=== PATIENT | female | born 1950 | race Caucasian/White ===

== ENCOUNTER 2023-10-07 14:38 | Inpatient (IN) ==
[2023-10-07 16:26] LABS: ABS Lymphocytes 1.5 10^3/uL (1.0-4.8); ABS Monocytes 0.7 10^3/uL (0.0-0.9); ABS Neutrophils 6.4 10^3/uL (1.5-7.6); Eosinophil % 0.2 %; Hematocrit 36.8 % (35-45); Hemoglobin 12.3 g/dL (11.5-14.3); Lymphocyte % 16.9 %; Mean Corpuscular Hemoglobin 28.2 pg (27-33); Mean Corpuscular Hgb Conc 33.5 g/dL (31-36); Mean Corpuscular Volume 84.2 fL (80-97); Mean Platelet Volume 8.4 fL (7.5-11.2); Platelet Count 248 10^3/uL (150-450); Red Blood Count 4.37 10^6/uL (3.63-4.92); Red Cell Distribution Width 15.1 % (12-17); White Blood Count 8.6 10^3/uL (3.8-11.8)
[2023-10-07] MEDS: Lactated Ringers SEPSIS* BAG 1,560 ML IV ONE (16:39)
[2023-10-07 16:53] LABS: Albumin 3.3 g/dL (3.2-5.2); Albumin/Globulin Ratio 1.4 (1-3); C Reactive Protein 27.4 mg/L (<8.01); Calcium 8.4 mg/dL (8.6-10.3); Creatinine, Serum 0.62 mg/dL (0.51-0.95); Globulin 2.3 g/dL (2-4); Potassium 3.5 mmol/L (3.5-5.0); Total Bilirubin 0.4 mg/dL (0.2-1.0); Total Protein 5.6 g/dL (6.4-8.9); eGFR CKD-EPI 92.8 (>60)
[2023-10-07 16:54] LABS: Activated Partial Thrombo Time 33.7 seconds (26.0-38.0); INR 1.48 (0.83-1.13)
[2023-10-07 17:58] LABS: High Sensitivity Troponin 1 Hr 22 pg/mL (<15)
[2023-10-07] MEDS: Metoprolol Tartrate 5 mg VIAL 5 ml VIAL (1 mg/ml) IV ONE (18:14)
[2023-10-07] MEDS: Acetaminophen IV 1 GM/100ML 1,000 MG/100 ML BAG IV SCH (20:11)
[2023-10-07] MEDS: Potassium Chlor 20 meq TAB.ER PO ONE (20:11)
[2023-10-07] MEDS: Nystatin SUSPENSION 100,000 UNITS/ML UDC PO SCH (20:11)
[2023-10-07 21:04] LABS: TSH Ultra Thyroid Stim Horm 0.56 mcIU/mL (0.34-5.60)
[2023-10-07] MEDS: Morphine 2 MG/ML SYRINGE IV PRN (22:22)
[2023-10-08] MEDS: Lactated Ringers 1000 ml BAG 1,000 ML IV SCH (00:07)
[2023-10-08 05:25] LABS: Urine Appearance Clear; Urine Bilirubin Negative (Negative); Urine Blood Negative (Negative); Urine Color Light-Yellow; Urine Glucose Negative (Negative); Urine Ketones 3+ (Negative); Urine Nitrite Negative (Negative); Urine Protein Trace (Negative); Urine Specific Gravity 1.025 (1.002-1.030); Urine Urobilinogen Negative (Negative)
[2023-10-08 05:29] LABS: Urine Bacteria Absent /HPF (Absent); Urine Red Blood Cell Trace(0-2/hpf) /HPF (0-Trace); Urine Squamous Epithelial Cell Present /HPF (Absent); Urine White Blood Cell 3+(>20/hpf) /HPF (0-Trace)
[2023-10-08 05:51] LABS: ABS Eosinophils 0.1 10^3/uL (0.0-0.5); ABS Lymphocytes 2.6 10^3/uL (1.0-4.8); ABS Monocytes 0.7 10^3/uL (0.0-0.9); ABS Neutrophils 3.1 10^3/uL (1.5-7.6); Eosinophil % 1.1 %; Hematocrit 32.2 % (35-45); Hemoglobin 10.8 g/dL (11.5-14.3); Lymphocyte % 40.7 %; Mean Corpuscular Hemoglobin 28.2 pg (27-33); Mean Corpuscular Hgb Conc 33.7 g/dL (31-36); Mean Corpuscular Volume 83.7 fL (80-97); Mean Platelet Volume 8.3 fL (7.5-11.2); Nucleated Red Blood Cells % 0.1 %/100WBC (0.0-0.8); Platelet Count 233 10^3/uL (150-450); Red Blood Count 3.85 10^6/uL (3.63-4.92); Red Cell Distribution Width 15.4 % (12-17); White Blood Count 6.5 10^3/uL (3.8-11.8)
[2023-10-08 07:02] LABS: Albumin 2.9 g/dL (3.2-5.2); Albumin/Globulin Ratio 1.5 (1-3); Calcium 7.9 mg/dL (8.6-10.3); Creatinine, Serum 0.59 mg/dL (0.51-0.95); Magnesium 1.3 mg/dL (1.9-2.7); Potassium 3.2 mmol/L (3.5-5.0); Total Bilirubin 0.4 mg/dL (0.2-1.0); Total Protein 4.9 g/dL (6.4-8.9); eGFR CKD-EPI 93.9 (>60)
[2023-10-08] MEDS: Ondansetron 4 mg VIAL 2 MG/ML 2 ml VIAL IV PRN (08:35)
[2023-10-08] MEDS: Aspirin EC 81 mg TAB.EC (enteric coated) PO SCH (08:37)
[2023-10-08] MEDS: CMC:Roflumilast 500 mcg TAB (NF) PO SCH (08:37)
[2023-10-08] MEDS: CMC:FLUTICAS/UMECLI/VILANT 100-62.5-25 MDI (NF) INH SCH (10:08)
[2023-10-08] MEDS: Calcium Carb (TUMS) 500 mg CHEW TAB PO ONE (17:09)
[2023-10-08] MEDS: KCL 20 MEQ/100 ML IVPREMIX 20 MEQ/100 ML BAG IV SCH (17:56)
[2023-10-08 18:57] LABS: High Sensitivity Troponin 1 Hr 19 pg/mL (<15)
[2023-10-08] MEDS: Lidocaine PATCH 5% PATCH TRANSDERM SCH (19:49)
[2023-10-08] MEDS: Iohexol 350 (CONTRAST) 500 ML MDV IV ONE (20:24)
[2023-10-08] MEDS: Famotidine IV 10 MG/ML 2 ml VIAL (20 mg) IV SLOW PU ONE (20:49)
[2023-10-08] MEDS: Magnesium Sulf 4 GM/100 ML IV 4,000 MG/100 ML BAG IVPB ONE (21:01)
[2023-10-09 14:55] LABS: ABS Lymphocytes 1.5 10^3/uL (1.0-4.8); ABS Monocytes 0.9 10^3/uL (0.0-0.9); ABS Neutrophils 5.6 10^3/uL (1.5-7.6); Eosinophil % 0.2 %; Hematocrit 32.6 % (35-45); Lymphocyte % 18.9 %; Mean Corpuscular Hemoglobin 28.4 pg (27-33); Mean Corpuscular Hgb Conc 33.8 g/dL (31-36); Mean Platelet Volume 8.3 fL (7.5-11.2); Platelet Count 256 10^3/uL (150-450); Red Blood Count 3.88 10^6/uL (3.63-4.92); Red Cell Distribution Width 15.2 % (12-17); White Blood Count 8.1 10^3/uL (3.8-11.8)
[2023-10-09 15:28] LABS: Calcium 7.6 mg/dL (8.6-10.3); Creatinine, Serum 0.49 mg/dL (0.51-0.95); Magnesium 1.6 mg/dL (1.9-2.7); Potassium 3.8 mmol/L (3.5-5.0); eGFR CKD-EPI 98.2 (>60)
[2023-10-09] MEDS: Magnesium Sulf 4 GM/100 ML IV 4,000 MG/100 ML BAG IVPB ONE (20:52)
[2023-10-10 05:42] LABS: ABS Monocytes 0.8 10^3/uL (0.0-0.9); ABS Neutrophils 4.4 10^3/uL (1.5-7.6); Eosinophil % 0.6 %; Hematocrit 31.1 % (35-45); Hemoglobin 10.7 g/dL (11.5-14.3); Lymphocyte % 27.7 %; Mean Corpuscular Hemoglobin 28.7 pg (27-33); Mean Corpuscular Hgb Conc 34.4 g/dL (31-36); Mean Corpuscular Volume 83.5 fL (80-97); Mean Platelet Volume 8.3 fL (7.5-11.2); Platelet Count 233 10^3/uL (150-450); Red Blood Count 3.72 10^6/uL (3.63-4.92); Red Cell Distribution Width 15.1 % (12-17); White Blood Count 7.2 10^3/uL (3.8-11.8)
[2023-10-10 06:37] LABS: Calcium 7.4 mg/dL (8.6-10.3); Creatinine, Serum 0.51 mg/dL (0.51-0.95); Magnesium 2.3 mg/dL (1.9-2.7); Potassium 3.4 mmol/L (3.5-5.0); eGFR CKD-EPI 97.3 (>60)
[2023-10-10] MEDS: Potassium Chlor 20 meq TAB.ER PO ONE (09:17)
[2023-10-11 06:06] LABS: Calcium 7.8 mg/dL (8.6-10.3); Creatinine, Serum 0.45 mg/dL (0.51-0.95); Potassium 2.9 mmol/L (3.5-5.0); eGFR CKD-EPI 100.3 (>60)
[2023-10-11 09:36] LABS: Magnesium 1.3 mg/dL (1.9-2.7)
[2023-10-11] MEDS: KCL 20 MEQ/100 ML IVPREMIX 20 MEQ/100 ML BAG IV SCH (10:11)
[2023-10-11] MEDS: Magnesium Sulfate 2 gm BAG 2 GM/50 ML BAG IVPB SCH (11:14)
[2023-10-11 12:28] LABS: C Reactive Protein 107.39 mg/L (<8.01)
[2023-10-11] MEDS: Metoclopramide 5 MG/ML VIAL (10 mg) IV PRN (12:52)
[2023-10-11] MEDS: Iohexol 300 (CONTRAST) 10 ML SDV IV ONE (14:55)
[2023-10-12 06:50] LABS: ABS Lymphocytes 1.6 10^3/uL (1.0-4.8); ABS Monocytes 0.6 10^3/uL (0.0-0.9); ABS Neutrophils 3.9 10^3/uL (1.5-7.6); ABS Nucleated RBC 0.01 10^3/ul; Eosinophil % 0.7 %; Hematocrit 35.8 % (35-45); Hemoglobin 12.1 g/dL (11.5-14.3); Lymphocyte % 25.5 %; Mean Corpuscular Hemoglobin 27.9 pg (27-33); Mean Corpuscular Hgb Conc 33.7 g/dL (31-36); Mean Corpuscular Volume 82.8 fL (80-97); Mean Platelet Volume 8.3 fL (7.5-11.2); Nucleated Red Blood Cells % 0.1 %/100WBC (0.0-0.8); Platelet Count 321 10^3/uL (150-450); Red Blood Count 4.33 10^6/uL (3.63-4.92); Red Cell Distribution Width 15.5 % (12-17); White Blood Count 6.1 10^3/uL (3.8-11.8)
[2023-10-12] MEDS: Metoprolol Tartrate 5 mg VIAL 5 ml VIAL (1 mg/ml) IV PRN (07:19)
[2023-10-12 07:55] LABS: Calcium 7.5 mg/dL (8.6-10.3); Creatinine, Serum 0.54 mg/dL (0.51-0.95); Potassium 3.2 mmol/L (3.5-5.0)
[2023-10-12] MEDS: KCL 20 MEQ/100 ML IVPREMIX 20 MEQ/100 ML BAG IV SCH (09:25)
[2023-10-12] MEDS: Potassium Chloride IV 20 MEQ in Lactated Ringers 1000 ml BAG 1,000 ML IVPB SCH (10:28)
[2023-10-12] MEDS: Potassium Chloride LIQUID 20 MEQ/15 ML LIQUID PO ONE (10:30)
[2023-10-12] MEDS: Digoxin IV 0.5 MG/2 ML AMP (0.25 MG/ML) IV SLOW PU ONE (12:01)
[2023-10-12] MEDS: PEG 3000 GI LAVAGE 1 GALLON PO ONE (18:38)
[2023-10-12] MEDS: Acetaminophen IV 1 GM/100ML 1,000 MG/100 ML BAG IV PRN (21:59)
[2023-10-12] MEDS: Hyaluronidase HUMAN 15 UNIT in Sodium Chloride 0.9% 0.9 ML INTRADERM ONE (22:32)
[2023-10-13 05:55] LABS: ABS Eosinophils 0.1 10^3/uL (0.0-0.5); ABS Lymphocytes 2.6 10^3/uL (1.0-4.8); ABS Monocytes 0.5 10^3/uL (0.0-0.9); ABS Neutrophils 3.3 10^3/uL (1.5-7.6); ABS Nucleated RBC 0.02 10^3/ul; Eosinophil % 0.9 %; Hematocrit 35.9 % (35-45); Hemoglobin 11.8 g/dL (11.5-14.3); Lymphocyte % 39.8 %; Mean Corpuscular Hemoglobin 27.4 pg (27-33); Mean Corpuscular Volume 83.2 fL (80-97); Mean Platelet Volume 7.8 fL (7.5-11.2); Nucleated Red Blood Cells % 0.3 %/100WBC (0.0-0.8); Platelet Count 374 10^3/uL (150-450); Red Blood Count 4.31 10^6/uL (3.63-4.92); Red Cell Distribution Width 15.7 % (12-17); White Blood Count 6.6 10^3/uL (3.8-11.8)
[2023-10-13 06:27] LABS: Calcium 8.5 mg/dL (8.6-10.3); Creatinine, Serum 0.51 mg/dL (0.51-0.95); Magnesium 1.4 mg/dL (1.9-2.7); eGFR CKD-EPI 97.3 (>60)
[2023-10-13] MEDS: Magnesium Sulf 4 GM/100 ML IV 4,000 MG/100 ML BAG IVPB ONE (10:05)
[2023-10-13] MEDS ORDERED: fentaNYL 100 mcg/2 ml 50 MCG/ML VIAL ONE (15:51)
[2023-10-13] MEDS ORDERED: Midazolam 10 mg/10 ml VIAL 1 mg/ml 10 ml VIAL (10 mg) ONE (15:51)
[2023-10-13] MEDS: fentaNYL 100 mcg/2 ml 50 MCG/ML VIAL IV SLOW PU ONE (17:57)
[2023-10-13] MEDS: Midazolam 10 mg/10 ml VIAL 1 mg/ml 10 ml VIAL (10 mg) IV SLOW PU ONE (17:58)
[2023-10-13] MEDS: Lactated Ringers 1000 ml BAG 1,000 ML IV ONE (18:24)
[2023-10-14 06:20] LABS: Calcium 7.8 mg/dL (8.6-10.3); Creatinine, Serum 0.52 mg/dL (0.51-0.95); Magnesium 1.5 mg/dL (1.9-2.7); Potassium 4.1 mmol/L (3.5-5.0); eGFR CKD-EPI 96.8 (>60)
[2023-10-14] MEDS: Magnesium Sulf 4 GM/100 ML IV 4,000 MG/100 ML BAG IVPB ONE (08:49)
[2023-10-14 10:20] VITALS: BP 114/59
[2023-10-17 15:28] LABS: Glucoamylase 21.1 (>=8.0); Palatinase 2.4 (>=6.0); Sucrase 2.1 (>=19.0)
== END 2023-10-14 15:10 | disposition home or self-care (01) | DRG 439 ==
LOC: ED 14:38 → EDHOLD 14:38 → MEDTELE 23:30
PROVIDERS: ADMIT Hospitalist; ATTEND Internal Medicine

== ENCOUNTER 2023-10-28 09:50 | Inpatient (IN) ==
[2023-10-28 11:37] LABS: ABS Lymphocytes 1.6 10^3/uL (1.0-4.8); ABS Monocytes 0.7 10^3/uL (0.0-0.9); ABS Neutrophils 9.1 10^3/uL (1.5-7.6); Eosinophil % 0.3 %; Hematocrit 38.6 % (35-45); Hemoglobin 12.7 g/dL (11.5-14.3); Lymphocyte % 14.3 %; Mean Corpuscular Hemoglobin 27.5 pg (27-33); Mean Corpuscular Hgb Conc 32.9 g/dL (31-36); Mean Corpuscular Volume 83.6 fL (80-97); Mean Platelet Volume 8.5 fL (7.5-11.2); Platelet Count 285 10^3/uL (150-450); Red Blood Count 4.62 10^6/uL (3.63-4.92); White Blood Count 11.5 10^3/uL (3.8-11.8)
[2023-10-28] MEDS: Morphine 2 MG/ML SYRINGE IV ONE ×2 (11:46→15:19)
[2023-10-28] MEDS: Lactated Ringers 1000 ml BAG 1,000 ML IV ONE ×2 (11:46→15:19)
[2023-10-28] MEDS: ACETAMINOPHEN IV ONE (11:46)
[2023-10-28] MEDS: Ondansetron 4 mg VIAL 2 MG/ML 2 ml VIAL IV ONE (11:47)
[2023-10-28 11:51] LABS: INR 1.81 (0.83-1.13)
[2023-10-28 11:54] LABS: C Reactive Protein 12.9 mg/L (<8.01); Calcium 8.8 mg/dL (8.6-10.3); Creatinine, Serum 0.73 mg/dL (0.51-0.95); Potassium 3.7 mmol/L (3.5-5.0); eGFR CKD-EPI 85.7 (>60)
[2023-10-28 12:13] LABS: Albumin 3.3 g/dL (3.2-5.2); Albumin/Globulin Ratio 1.4 (1-3); Globulin 2.4 g/dL (2-4); Total Bilirubin 0.4 mg/dL (0.2-1.0); Total Protein 5.7 g/dL (6.4-8.9)
[2023-10-28 13:45] LABS: High Sensitivity Troponin 1 Hr 11 pg/mL (<15)
[2023-10-28] MEDS: Iohexol 350 (CONTRAST) 500 ML MDV IV ONE (13:46)
[2023-10-28] MEDS: Metoclopramide 5 MG/ML VIAL (10 mg) IV ONE (14:40)
[2023-10-28] MEDS ORDERED: Morphine 2 MG/ML SYRINGE IV PRN ×2 (17:28)
[2023-10-28] MEDS ORDERED: Albuterol HFA INHALER 8 gm MDI INH PRN (18:56)
[2023-10-28] MEDS: Morphine 2 MG/ML SYRINGE IV PRN ×2 (19:50→22:12)
[2023-10-28] MEDS: Enoxaparin 60 MG/0.6 ML SYR SUBCUT SCH (21:26)
[2023-10-28] MEDS: Pantoprazole VIAL 40 MG VIAL IV SCH (21:27)
[2023-10-28] MEDS ORDERED: Ondansetron 4 mg VIAL 2 MG/ML 2 ml VIAL IV PRN (22:31)
[2023-10-28] MEDS: Acetaminophen IV 1 GM/100ML 1,000 MG/100 ML BAG IV PRN (23:27)
[2023-10-28] MEDS: Lactated Ringers 1000 ml BAG 1,000 ML IV SCH (23:27)
[2023-10-29] MEDS: Ondansetron 4 mg VIAL 2 MG/ML 2 ml VIAL IV PRN (03:18)
[2023-10-29 05:38] LABS: Hematocrit 34.7 % (35-45); Hemoglobin 11.7 g/dL (11.5-14.3); Mean Corpuscular Hemoglobin 27.9 pg (27-33); Mean Corpuscular Hgb Conc 33.8 g/dL (31-36); Mean Corpuscular Volume 82.6 fL (80-97); Mean Platelet Volume 8.2 fL (7.5-11.2); Platelet Count 231 10^3/uL (150-450); Red Cell Distribution Width 16.5 % (12-17); White Blood Count 9.8 10^3/uL (3.8-11.8)
[2023-10-29 06:25] LABS: Calcium 8.2 mg/dL (8.6-10.3); Creatinine, Serum 0.53 mg/dL (0.51-0.95); Magnesium 1.6 mg/dL (1.9-2.7); Phosphorus 3.9 mg/dL (2.5-5.0); Potassium 4.3 mmol/L (3.5-5.0); eGFR CKD-EPI 96.4 (>60)
[2023-10-29 08:45] LABS: Albumin 2.7 g/dL (3.2-5.2); Albumin/Globulin Ratio 1.4 (1-3); Direct Bilirubin 0.1 mg/dL (0.03-0.18); Indirect Bilirubin 0.3 mg/dL (0.3-1.0); Total Bilirubin 0.4 mg/dL (0.2-1.0); Total Protein 4.7 g/dL (6.4-8.9)
[2023-10-29] MEDS: Magnesium Sulfate 2 gm BAG 2 GM/50 ML BAG IVPB ONE (08:59)
[2023-10-29] MEDS ORDERED: Metoprolol Tartrate 5 mg VIAL 5 ml VIAL (1 mg/ml) IV PRN (10:51)
[2023-10-29] MEDS: Aspirin EC 81 mg TAB.EC (enteric coated) PO SCH (10:55)
[2023-10-30] MEDS ORDERED: Levothyroxine 100 MCG/5 ML VIAL IV SCH (06:00)
[2023-10-30] MEDS: Levothyroxine 100 MCG/5 ML VIAL IV SCH (06:07)
[2023-10-30 07:13] LABS: ABS Lymphocytes 1.6 10^3/uL (1.0-4.8); ABS Monocytes 0.8 10^3/uL (0.0-0.9); ABS Neutrophils 7.6 10^3/uL (1.5-7.6); ABS Nucleated RBC 0.01 10^3/ul; Eosinophil % 0.2 %; Hemoglobin 12.2 g/dL (11.5-14.3); Lymphocyte % 15.6 %; Mean Corpuscular Hemoglobin 27.9 pg (27-33); Mean Corpuscular Hgb Conc 32.9 g/dL (31-36); Mean Corpuscular Volume 84.8 fL (80-97); Mean Platelet Volume 8.7 fL (7.5-11.2); Nucleated Red Blood Cells % 0.1 %/100WBC (0.0-0.8); Platelet Count 188 10^3/uL (150-450); Red Blood Count 4.36 10^6/uL (3.63-4.92); Red Cell Distribution Width 17.3 % (12-17)
[2023-10-30 07:25] LABS: Calcium 7.9 mg/dL (8.6-10.3)
[2023-10-30 07:28] LABS: Lipase 228 U/L (11.0-82.0); Magnesium 1.6 mg/dL (1.9-2.7)
[2023-10-30] MEDS: Magnesium Sulfate 2 gm BAG 2 GM/50 ML BAG IVPB ONE (08:50)
[2023-10-30] MEDS: Lactated Ringers 1000 ml BAG 1,000 ML IV SCH (08:54)
[2023-10-30] MEDS: Magnesium Sulfate IV 1GM/100ML 1 GM/100 ML BAG IV ONE (10:42)
[2023-10-31 06:24] LABS: ABS Lymphocytes 1.2 10^3/uL (1.0-4.8); ABS Neutrophils 8.6 10^3/uL (1.5-7.6); Eosinophil % 0.1 %; Hematocrit 32.6 % (35-45); Lymphocyte % 10.9 %; Mean Corpuscular Hgb Conc 33.9 g/dL (31-36); Mean Corpuscular Volume 82.6 fL (80-97); Mean Platelet Volume 8.7 fL (7.5-11.2); Platelet Count 228 10^3/uL (150-450); Red Blood Count 3.94 10^6/uL (3.63-4.92); White Blood Count 10.8 10^3/uL (3.8-11.8)
[2023-10-31 06:32] LABS: Calcium 7.6 mg/dL (8.6-10.3); Creatinine, Serum 0.32 mg/dL (0.51-0.95); Magnesium 1.4 mg/dL (1.9-2.7); Phosphorus 2.2 mg/dL (2.5-5.0); Potassium 3.2 mmol/L (3.5-5.0); eGFR CKD-EPI 108.8 (>60)
[2023-10-31] MEDS: KCL 20 MEQ/100 ML IVPREMIX 20 MEQ/100 ML BAG IV SCH (09:03)
[2023-10-31] MEDS: LORazepam 2 mg VIAL 1 ml IV PUSH ONE (10:38)
[2023-10-31] MEDS: Magnesium Sulf 4 GM/100 ML IV 4,000 MG/100 ML BAG IVPB ONE (14:06)
[2023-10-31] MEDS: Morphine 2 MG/ML SYRINGE IV PRN (16:08)
[2023-11-01] MEDS: HYDROmorphone 1 MG/1 ML SYRINGE IV SLOW PU ONE (01:53)
[2023-11-01] MEDS: HYDROmorphone 1 MG/1 ML SYRINGE ONE (01:55)
[2023-11-01 06:24] LABS: ABS Lymphocytes 1.2 10^3/uL (1.0-4.8); ABS Monocytes 0.6 10^3/uL (0.0-0.9); ABS Neutrophils 5.6 10^3/uL (1.5-7.6); Eosinophil % 0.2 %; Hematocrit 31.4 % (35-45); Hemoglobin 10.3 g/dL (11.5-14.3); Lymphocyte % 16.1 %; Mean Corpuscular Hemoglobin 27.2 pg (27-33); Mean Corpuscular Volume 82.4 fL (80-97); Mean Platelet Volume 8.4 fL (7.5-11.2); Platelet Count 234 10^3/uL (150-450); Red Blood Count 3.81 10^6/uL (3.63-4.92); Red Cell Distribution Width 16.7 % (12-17); White Blood Count 7.4 10^3/uL (3.8-11.8)
[2023-11-01 06:46] LABS: Anion Gap 11 mmol/L (2-16); Blood Urea Nitrogen 6 mg/dL (6-24); CO2 Carbon Dioxide 23 mmol/L (22-32); Calcium 7.3 mg/dL (8.6-10.3); Chloride 105 mmol/L (101-111); Creatinine, Serum < 0.30 mg/dL (0.51-0.95); Glucose 89 mg/dL (70-100); Lipase 127 U/L (11.0-82.0); Magnesium 1.6 mg/dL (1.9-2.7); Potassium 3.3 mmol/L (3.5-5.0); Sodium 139 mmol/L (135-145); eGFR CKD-EPI 110.6 (>60)
[2023-11-01] MEDS: KCL 10 MEQ/50 ML IVPREMIX 10 MEQ/50 ML BAG IV SCH (08:21)
[2023-11-01] MEDS: Senna TAB 8.6 mg TAB PO SCH (08:21)
[2023-11-01] MEDS: Magnesium Sulf 4 GM/100 ML IV 4,000 MG/100 ML BAG IVPB ONE (09:58)
[2023-11-01] MEDS: Metoclopramide 5 MG/ML VIAL (10 mg) IV PRN (11:02)
[2023-11-01] MEDS: Scopolamine 1 mg/72hr PATCH TRANSDERM SCH (12:11)
[2023-11-01] MEDS: Potassium Phosphate IV 10 MMOL in NS 0.9% 250 ml 250 ML IVPB ONE ×2 (14:46→15:38)
[2023-11-01] MEDS: Morphine 2 MG/ML SYRINGE IV PRN (18:09)
[2023-11-01] MEDS: Metoprolol Tartrate 5 mg VIAL 5 ml VIAL (1 mg/ml) IV SCH (23:51)
[2023-11-02] MEDS: HYDROmorphone 1 MG/1 ML SYRINGE IV SLOW PU ONE (01:40)
[2023-11-02 05:38] LABS: Hemoglobin 10.8 g/dL (11.5-14.3); Mean Corpuscular Hemoglobin 27.5 pg (27-33); Mean Corpuscular Hgb Conc 33.6 g/dL (31-36); Mean Corpuscular Volume 81.6 fL (80-97); Mean Platelet Volume 7.8 fL (7.5-11.2); Platelet Count 264 10^3/uL (150-450); Red Blood Count 3.92 10^6/uL (3.63-4.92); Red Cell Distribution Width 16.4 % (12-17); White Blood Count 6.7 10^3/uL (3.8-11.8)
[2023-11-02 06:16] LABS: Anion Gap 15 mmol/L (2-16); Blood Urea Nitrogen 3 mg/dL (6-24); CO2 Carbon Dioxide 21 mmol/L (22-32); Calcium 7.4 mg/dL (8.6-10.3); Chloride 104 mmol/L (101-111); Creatinine, Serum < 0.30 mg/dL (0.51-0.95); Glucose 86 mg/dL (70-100); Magnesium 1.5 mg/dL (1.9-2.7); Phosphorus 2.4 mg/dL (2.5-5.0); Sodium 140 mmol/L (135-145); eGFR CKD-EPI 110.6 (>60)
[2023-11-02] MEDS ORDERED: Midazolam 5 mg/5 ml VIAL 1 mg/ml 5 ml VIAL (5 mg) ONE (07:32)
[2023-11-02] MEDS ORDERED: fentaNYL 100 mcg/2 ml 50 MCG/ML VIAL ONE (07:32)
[2023-11-02 07:53] LABS: ALT 10 U/L (7-52); AST 21 U/L (13-39); Albumin 2.6 g/dL (3.2-5.2); Albumin/Globulin Ratio 1.3 (1-3); Alkaline Phosphatase 111 U/L (35-149); Total Bilirubin 0.5 mg/dL (0.2-1.0); Total Protein 4.6 g/dL (6.4-8.9)
[2023-11-02 07:58] LABS: ABS Lymphocytes 1.1 10^3/uL (1.0-4.8); ABS Monocytes 0.5 10^3/uL (0.0-0.9); ABS Nucleated RBC 0.01 10^3/ul; Eosinophil % 0.2 %; Lymphocyte % 16.1 %; Nucleated Red Blood Cells % 0.1 %/100WBC (0.0-0.8); RBC Morphology Normal (Normal); Smudge Cells Present
[2023-11-02 08:07] LABS: Carcinoembryonic Antigen 1.5 ng/mL (0.1-5.0)
[2023-11-02] MEDS: KCL 20 MEQ/100 ML IVPREMIX 20 MEQ/100 ML BAG IV SCH ×2 (09:57→21:22)
[2023-11-02] MEDS: Magnesium Sulf 4 GM/100 ML IV 4,000 MG/100 ML BAG IVPB ONE (15:55)
[2023-11-02] MEDS: Morphine 2 MG/ML SYRINGE IV PRN (23:52)
[2023-11-03 07:43] LABS: Hematocrit 33.9 % (35-45); Hemoglobin 11.4 g/dL (11.5-14.3); Mean Corpuscular Hemoglobin 27.5 pg (27-33); Mean Corpuscular Hgb Conc 33.7 g/dL (31-36); Mean Corpuscular Volume 81.5 fL (80-97); Mean Platelet Volume 7.6 fL (7.5-11.2); Platelet Count 249 10^3/uL (150-450); Red Blood Count 4.16 10^6/uL (3.63-4.92); White Blood Count 5.9 10^3/uL (3.8-11.8)
[2023-11-03] MEDS: KCL 10 MEQ/50 ML IVPREMIX 10 MEQ/50 ML BAG IV ONE (07:59)
[2023-11-03 08:15] LABS: Anion Gap 13 mmol/L (2-16); Blood Urea Nitrogen < 2 mg/dL (6-24); CO2 Carbon Dioxide 27 mmol/L (22-32); Chloride 101 mmol/L (101-111); Creatinine, Serum 0.33 mg/dL (0.51-0.95); Glucose 81 mg/dL (70-100); Lipase 88 U/L (11.0-82.0); Magnesium 1.3 mg/dL (1.9-2.7); Phosphorus 2.5 mg/dL (2.5-5.0); Potassium 3.1 mmol/L (3.5-5.0); Sodium 141 mmol/L (135-145)
[2023-11-03 08:41] LABS: ABS Eosinophils 0.2 10^3/uL (0.0-0.5); ABS Lymphocytes 1.6 10^3/uL (1.0-4.8); ABS Monocytes 0.7 10^3/uL (0.0-0.9); ABS Neutrophils 3.4 10^3/uL (1.5-7.6); ABS Nucleated RBC 0.01 10^3/ul; Eosinophil % 2.7 %; Lymphocyte % 27.5 %; Nucleated Red Blood Cells % 0.1 %/100WBC (0.0-0.8)
[2023-11-03 08:42] LABS: RBC Morphology Normal (Normal)
[2023-11-03] MEDS: Scopolamine 1 mg/72hr PATCH TRANSDERM SCH (08:51)
[2023-11-03] MEDS: Potassium Chlor 20 meq TAB.ER PO ONE (08:51)
[2023-11-03] MEDS: Magnesium Sulfate 2 gm BAG 2 GM/50 ML BAG IVPB ONE (09:21)
[2023-11-03] MEDS ORDERED: Enoxaparin 60 MG/0.6 ML SYR SUBCUT SCH (10:00)
[2023-11-03] MEDS ORDERED: Heparin 2 UNITS/ML 1000 mls 1,000 ML IV ONE (10:11)
[2023-11-03] MEDS ORDERED: fentaNYL 100 mcg/2 ml 50 MCG/ML VIAL ONE ×2 (10:11→10:53)
[2023-11-03] MEDS ORDERED: Iohexol 350 (CONTRAST) 200 ML MDV IV ONE (10:11)
[2023-11-03] MEDS ORDERED: Lidocaine 1% MPF 5 ML VIAL ONE (10:11)
[2023-11-03] MEDS ORDERED: Heparin 1,000 UNIT/ML 10 ml (10,000 UNITS) CATHLAB/DIALYSIS ONE (10:11)
[2023-11-03] MEDS ORDERED: Iohexol 350 (CONTRAST) 100 ML PAK IV ONE ×3 (10:11→10:59)
[2023-11-03] MEDS ORDERED: Midazolam 5 mg/5 ml VIAL 1 mg/ml 5 ml VIAL (5 mg) ONE ×2 (10:11→10:53)
[2023-11-03] MEDS ORDERED: nitroGLYCERIN DRIP 0 MCG/0 ML BTL ONE (10:11)
[2023-11-03] MEDS ORDERED: niCARdipine 0.1MG/ML IVPREMIX 0 MG/0 ML BAG IV ONE (10:12)
[2023-11-03] MEDS ORDERED: Heparin 2 UNITS/ML IVPREMIX 2,000 UNIT/1,000 ML BAG IV ONE (10:28)
[2023-11-03] MEDS ORDERED: Lidocaine 1% VIAL 10 MG/ML 30 ML VIAL ONE (10:28)
[2023-11-03] MEDS ORDERED: Heparin 2 UNITS/ML IVPREMIX 1,000 UNIT/500 ML BAG IV ONE (10:53)
[2023-11-03] MEDS: Enoxaparin 60 MG/0.6 ML SYR SUBCUT SCH (12:23)
[2023-11-03] MEDS: Acetaminophen IV 1 GM/100ML 1,000 MG/100 ML BAG IV ONE (14:28)
[2023-11-03 15:09] LABS: Immunoglobulin Subclass IgG4 19.9 mg/dL
[2023-11-03] MEDS: Docusate LIQ 100 MG/10 ML UDC PO PRN (17:04)
[2023-11-03] MEDS: Senna TAB 8.6 mg TAB PO SCH (17:05)
[2023-11-03] MEDS: Gadoteridol (CONTRAST) 279.3 MG/ML 10 ML IV ONE (21:24)
[2023-11-04] MEDS: Magnesium Sulf 4 GM/100 ML IV 4,000 MG/100 ML BAG IVPB ONE (17:56)
[2023-11-04] MEDS: Potassium Chlor 20 meq TAB.ER PO ONE (17:56)
[2023-11-04 23:09] LABS: Calcium 8.5 mg/dL (8.6-10.3); Creatinine, Serum 0.34 mg/dL (0.51-0.95); Magnesium 2.3 mg/dL (1.9-2.7); Potassium 3.2 mmol/L (3.5-5.0); eGFR CKD-EPI 107.3 (>60)
[2023-11-05] MEDS: Potassium Chloride LIQUID 20 MEQ/15 ML LIQUID PO ONE (00:19)
[2023-11-05] MEDS: KCL 20 MEQ/100 ML IVPREMIX 20 MEQ/100 ML BAG IV SCH (00:34)
[2023-11-05] MEDS ORDERED: Potassium Chloride LIQUID 20 MEQ/15 ML LIQUID PO ONE (01:00)
[2023-11-05 06:11] LABS: Albumin 2.8 g/dL (3.2-5.2); Albumin/Globulin Ratio 1.2 (1-3); Calcium 8.4 mg/dL (8.6-10.3); Creatinine, Serum 0.36 mg/dL (0.51-0.95); Globulin 2.3 g/dL (2-4); Magnesium 1.9 mg/dL (1.9-2.7); Potassium 3.7 mmol/L (3.5-5.0); Total Bilirubin 0.4 mg/dL (0.2-1.0); Total Protein 5.1 g/dL (6.4-8.9); eGFR CKD-EPI 105.8 (>60)
[2023-11-05 06:21] LABS: Hematocrit 36.2 % (35-45); Hemoglobin 11.9 g/dL (11.5-14.3); Mean Corpuscular Hemoglobin 27.5 pg (27-33); Mean Corpuscular Volume 83.4 fL (80-97); Mean Platelet Volume 7.7 fL (7.5-11.2); Platelet Count 266 10^3/uL (150-450); Red Blood Count 4.34 10^6/uL (3.63-4.92); Red Cell Distribution Width 17.3 % (12-17); White Blood Count 9.7 10^3/uL (3.8-11.8)
[2023-11-05] MEDS: Potassium Chlor 20 meq TAB.ER PO ONE (08:35)
[2023-11-05] MEDS: Magnesium Sulfate 2 gm BAG 2 GM/50 ML BAG IVPB ONE (09:25)
[2023-11-05 10:31] LABS: ABS Lymphocytes 0.5 10^3/ul (1.0-4.8); ABS Monocytes 0.1 10^3/ul (0.0-0.9); ABS Neutrophils 9.1 10^3/ul (1.5-7.6)
[2023-11-05 10:32] LABS: RBC Morphology Normal (Normal)
[2023-11-06 06:02] LABS: Hematocrit 29.5 % (35-45); Hemoglobin 9.7 g/dL (11.5-14.3); Mean Corpuscular Hemoglobin 26.9 pg (27-33); Mean Corpuscular Volume 81.6 fL (80-97); Mean Platelet Volume 7.5 fL (7.5-11.2); Platelet Count 271 10^3/uL (150-450); Red Blood Count 3.61 10^6/uL (3.63-4.92); Red Cell Distribution Width 17.2 % (12-17); White Blood Count 7.1 10^3/uL (3.8-11.8)
[2023-11-06 06:40] LABS: Albumin 2.6 g/dL (3.2-5.2); Albumin/Globulin Ratio 1.3 (1-3); Calcium 7.8 mg/dL (8.6-10.3); Creatinine, Serum 0.33 mg/dL (0.51-0.95); Magnesium 1.3 mg/dL (1.9-2.7); Potassium 2.7 mmol/L (3.5-5.0); Total Bilirubin 0.4 mg/dL (0.2-1.0); Total Protein 4.6 g/dL (6.4-8.9)
[2023-11-06 06:46] LABS: ABS Eosinophils 0.1 10^3/uL (0.0-0.5); ABS Lymphocytes 1.2 10^3/uL (1.0-4.8); ABS Monocytes 0.7 10^3/uL (0.0-0.9); ABS Neutrophils 5.2 10^3/uL (1.5-7.6); ABS Nucleated RBC 0.01 10^3/ul; Eosinophil % 1.3 %; Lymphocyte % 16.1 %; Nucleated Red Blood Cells % 0.1 %/100WBC (0.0-0.8)
[2023-11-06] MEDS: KCL 20 MEQ/100 ML IVPREMIX 20 MEQ/100 ML BAG IV SCH ×2 (07:33→19:35)
[2023-11-06] MEDS: Magnesium Sulf 4 GM/100 ML IV 4,000 MG/100 ML BAG IVPB ONE (09:28)
[2023-11-06] MEDS: Potassium Chloride LIQUID 20 MEQ/15 ML LIQUID PO ONE (09:36)
[2023-11-06 16:58] LABS: Calcium 8.6 mg/dL (8.6-10.3); Creatinine, Serum 0.35 mg/dL (0.51-0.95); Potassium 3.6 mmol/L (3.5-5.0); eGFR CKD-EPI 106.5 (>60)
[2023-11-06 18:47] LABS: Magnesium 2.2 mg/dL (1.9-2.7); Phosphorus 2.6 mg/dL (2.5-5.0)
[2023-11-06] MEDS: Magnesium Sulfate IV 1GM/100ML 1 GM/100 ML BAG IV ONE (19:37)
[2023-11-06] MEDS: Enoxaparin 60 MG/0.6 ML SYR SUBCUT SCH (20:20)
[2023-11-07 05:50] LABS: Hematocrit 30.8 % (35-45); Hemoglobin 10.7 g/dL (11.5-14.3); Mean Corpuscular Hemoglobin 28.1 pg (27-33); Mean Corpuscular Hgb Conc 34.6 g/dL (31-36); Mean Platelet Volume 7.5 fL (7.5-11.2); Platelet Count 260 10^3/uL (150-450); White Blood Count 6.7 10^3/uL (3.8-11.8)
[2023-11-07 07:03] LABS: AST 13 U/L (13-39); Magnesium 1.7 mg/dL (1.9-2.7); Potassium 3.4 mmol/L (3.5-5.0)
[2023-11-07 07:04] LABS: ALT 7 U/L (7-52); Albumin 2.7 g/dL (3.2-5.2); Albumin/Globulin Ratio 1.2 (1-3); Anion Gap 12 mmol/L (2-16); Blood Urea Nitrogen < 2 mg/dL (6-24); CO2 Carbon Dioxide 22 mmol/L (22-32); Calcium 8.2 mg/dL (8.6-10.3); Chloride 104 mmol/L (101-111); Cholesterol 109 mg/dL; Creatinine, Serum < 0.30 mg/dL (0.51-0.95); Globulin 2.2 g/dL (2-4); Glucose 92 mg/dL (70-100); Phosphorus 3.1 mg/dL (2.5-5.0); Prealbumin 10 mg/dL (18-38); Sodium 138 mmol/L (135-145); Total Bilirubin 0.4 mg/dL (0.2-1.0); Total Protein 4.9 g/dL (6.4-8.9); eGFR CKD-EPI 110.6 (>60)
[2023-11-07 07:05] LABS: Alkaline Phosphatase 85 U/L (35-149); Triglycerides 102 mg/dL
[2023-11-07 07:14] LABS: ABS Eosinophils 0.1 10^3/uL (0.0-0.5); ABS Lymphocytes 1.4 10^3/uL (1.0-4.8); ABS Monocytes 0.8 10^3/uL (0.0-0.9); ABS Neutrophils 4.4 10^3/uL (1.5-7.6); ABS Nucleated RBC 0.01 10^3/ul; Eosinophil % 1.8 %; Lymphocyte % 20.6 %; Nucleated Red Blood Cells % 0.1 %/100WBC (0.0-0.8); RBC Morphology Normal (Normal)
[2023-11-07] MEDS: KCL 20 MEQ/100 ML IVPREMIX 20 MEQ/100 ML BAG IV SCH (08:42)
[2023-11-07] MEDS: PPN (PERIPHERAL) 24 HR with D10W 1000 ml BAG 1,000 ML, Amino Acid Infusion 10% 850 ML, ... IV SCH (23:30)
[2023-11-08] MEDS: Hyaluronidase HUMAN 15 UNIT in Sodium Chloride 0.9% 0.9 ML INTRADERM ONE (04:47)
[2023-11-08 06:03] LABS: Hematocrit 29.4 % (35-45); Hemoglobin 9.9 g/dL (11.5-14.3); Mean Corpuscular Hgb Conc 33.5 g/dL (31-36); Mean Corpuscular Volume 80.6 fL (80-97); Mean Platelet Volume 7.7 fL (7.5-11.2); Platelet Count 257 10^3/uL (150-450); Red Blood Count 3.65 10^6/uL (3.63-4.92); Red Cell Distribution Width 17.5 % (12-17); White Blood Count 6.4 10^3/uL (3.8-11.8)
[2023-11-08 06:43] LABS: Albumin 2.7 g/dL (3.2-5.2); Albumin/Globulin Ratio 1.4 (1-3); Calcium 8.7 mg/dL (8.6-10.3); Creatinine, Serum 0.33 mg/dL (0.51-0.95); Globulin 1.9 g/dL (2-4); Magnesium 1.4 mg/dL (1.9-2.7); Phosphorus 4.3 mg/dL (2.5-5.0); Potassium 2.9 mmol/L (3.5-5.0); Total Bilirubin 0.5 mg/dL (0.2-1.0); Total Protein 4.6 g/dL (6.4-8.9)
[2023-11-08 06:45] LABS: ABS Eosinophils 0.1 10^3/uL (0.0-0.5); ABS Lymphocytes 1.1 10^3/uL (1.0-4.8); ABS Monocytes 0.7 10^3/uL (0.0-0.9); ABS Neutrophils 4.5 10^3/uL (1.5-7.6); Eosinophil % 1.2 %; Lymphocyte % 17.2 %; Nucleated Red Blood Cells % 0.1 %/100WBC (0.0-0.8)
[2023-11-08] MEDS: Potassium Chloride LIQUID 20 MEQ/15 ML LIQUID PO ONE (09:50)
[2023-11-08] MEDS: KCL 20 MEQ/100 ML IVPREMIX 20 MEQ/100 ML BAG IV SCH (09:51)
[2023-11-08] MEDS: KCL 20 MEQ/100 ML IVPREMIX 20 MEQ/100 ML BAG IV ONE ×2 (10:03→17:16)
[2023-11-08] MEDS: Magnesium Sulf 4 GM/100 ML IV 4,000 MG/100 ML BAG IVPB ONE (10:31)
[2023-11-08 20:50] LABS: Calcium 8.9 mg/dL (8.6-10.3); Creatinine, Serum 0.45 mg/dL (0.51-0.95); Potassium 3.8 mmol/L (3.5-5.0); eGFR CKD-EPI 100.3 (>60)
[2023-11-09 06:34] LABS: Hematocrit 30.6 % (35-45); Hemoglobin 10.4 g/dL (11.5-14.3); Mean Corpuscular Hemoglobin 27.6 pg (27-33); Mean Corpuscular Hgb Conc 34.1 g/dL (31-36); Mean Corpuscular Volume 80.9 fL (80-97); Mean Platelet Volume 7.7 fL (7.5-11.2); Platelet Count 251 10^3/uL (150-450); Red Blood Count 3.78 10^6/uL (3.63-4.92); Red Cell Distribution Width 17.2 % (12-17); White Blood Count 8.9 10^3/uL (3.8-11.8)
[2023-11-09 07:10] LABS: Albumin 2.6 g/dL (3.2-5.2); Albumin/Globulin Ratio 1.2 (1-3); Calcium 8.3 mg/dL (8.6-10.3); Creatinine, Serum 0.41 mg/dL (0.51-0.95); Globulin 2.1 g/dL (2-4); Magnesium 1.6 mg/dL (1.9-2.7); Phosphorus 3.9 mg/dL (2.5-5.0); Potassium 3.2 mmol/L (3.5-5.0); Total Bilirubin 0.4 mg/dL (0.2-1.0); Total Protein 4.7 g/dL (6.4-8.9); eGFR CKD-EPI 102.5 (>60)
[2023-11-09] MEDS: Magnesium Sulf 4 GM/100 ML IV 4,000 MG/100 ML BAG IVPB ONE (08:08)
[2023-11-09] MEDS: Magnesium Chloride EC 64 mgTAB PO SCH (08:13)
[2023-11-09] MEDS: Potassium Chloride LIQUID 20 MEQ/15 ML LIQUID PO ONE (08:21)
[2023-11-09 08:26] LABS: ABS Basophils 0.1 10^3/uL (0.0-0.1); ABS Eosinophils 0.1 10^3/uL (0.0-0.5); ABS Lymphocytes 1.5 10^3/uL (1.0-4.8); ABS Monocytes 0.8 10^3/uL (0.0-0.9); ABS Neutrophils 6.4 10^3/uL (1.5-7.6); ABS Nucleated RBC 0.01 10^3/ul; Eosinophil % 1.1 %; Lymphocyte % 16.7 %; Nucleated Red Blood Cells % 0.2 %/100WBC (0.0-0.8)
[2023-11-09] MEDS: KCL 20 MEQ/100 ML IVPREMIX 20 MEQ/100 ML BAG IV SCH (09:58)
[2023-11-09] MEDS: Potassium Chloride LIQUID 20 MEQ/15 ML LIQUID NG TUBE ONE (14:35)
[2023-11-09 14:55] VITALS: BP 127/59
== END 2023-11-09 16:27 | disposition home or self-care (01) | DRG 438 ==
LOC: ED 09:50 → EDHOLD 09:50 → SUATTDRO 17:27 → EDHOLD 18:26 → SUATTDRO 10-29 09:38 → MEDTELE 10-29 13:01
PROVIDERS: ADMIT Internal Medicine; ATTEND Internal Medicine

== ENCOUNTER 2023-11-14 10:23 | Inpatient (IN) ==
[2023-11-14 12:16] LABS: Activated Partial Thrombo Time 18.8 seconds (26.0-38.0); INR 1.11 (0.85-1.14)
[2023-11-14] MEDS ORDERED: Naloxone 0.4 mg VIAL 0.4 mg/ml 1 ml VIAL IV PUSH PRN (12:59)
[2023-11-14] MEDS ORDERED: Flumazenil 0.5 mg/5 ml 0.1 MG/ML 5 ml VIAL IV PRN (12:59)
[2023-11-14] MEDS: HYDROmorphone 0.5 MG/0.5 ML SYRINGE IV SLOW PU PRN (16:31)
[2023-11-14] MEDS: Bupivacaine 0.25% SDV PF 10 ML VIAL INJ ONE (19:47)
[2023-11-14] MEDS: Glucagon 1 mg VIAL KIT ONE (19:47)
[2023-11-14] MEDS: Midazolam 2 mg/2 ml VIAL 1 mg/ml 2 ml VIAL (2 mg) ONE (19:47)
[2023-11-14] MEDS: ceFAZolin 1 GM ADVAN 1 GM ADDV.VIAL IVPB ONE (19:47)
[2023-11-14] MEDS: fentaNYL 250 mcg/5 ml 50 MCG/ML 5 ml VIAL (250 MCG) ONE (19:47)
[2023-11-14] MEDS: Midazolam 10 mg/10 ml VIAL 1 mg/ml 10 ml VIAL (10 mg) IV SLOW PU ONE (19:48)
[2023-11-14] MEDS: fentaNYL 100 mcg/2 ml 50 MCG/ML VIAL IV SLOW PU ONE (19:48)
[2023-11-14] MEDS ORDERED: Metoprolol Tartrate 5 mg VIAL 5 ml VIAL (1 mg/ml) IV PRN (20:03)
[2023-11-14] MEDS: Lactated Ringers 1000 ml BAG 1,000 ML IV ONE (20:20)
[2023-11-14] MEDS: Morphine 2 MG/ML SYRINGE IV PRN (20:55)
[2023-11-14] MEDS: Pantoprazole VIAL 40 MG VIAL IV SCH (20:56)
[2023-11-15] MEDS: Ondansetron 4 mg VIAL 2 MG/ML 2 ml VIAL IV PRN (05:11)
[2023-11-15] MEDS: Levothyroxine 100 MCG/5 ML VIAL IV SCH (05:57)
[2023-11-15 07:40] LABS: Anion Gap 9 mmol/L (2-16); Blood Urea Nitrogen 10 mg/dL (6-24); CO2 Carbon Dioxide 20 mmol/L (22-32); Calcium 8.7 mg/dL (8.6-10.3); Chloride 105 mmol/L (101-111); Creatinine, Serum 0.52 mg/dL (0.51-0.95); Glucose 90 mg/dL (70-100); Sodium 134 mmol/L (135-145); eGFR CKD-EPI 96.8 (>60)
[2023-11-15 09:04] LABS: ABS Lymphocytes 1.8 10^3/uL (1.0-4.8); ABS Monocytes 1.7 10^3/uL (0.0-0.9); ABS Neutrophils 9.4 10^3/uL (1.5-7.6); ABS Nucleated RBC 0.04 10^3/ul; Eosinophil % 0.3 %; Hematocrit 35.3 % (35-45); Hemoglobin 11.5 g/dL (11.5-14.3); Lymphocyte % 13.9 %; Mean Corpuscular Hgb Conc 32.6 g/dL (31-36); Mean Corpuscular Volume 82.7 fL (80-97); Mean Platelet Volume 8.7 fL (7.5-11.2); Nucleated Red Blood Cells % 0.3 %/100WBC (0.0-0.8); Platelet Count 303 10^3/uL (150-450); Red Blood Count 4.27 10^6/uL (3.63-4.92); Red Cell Distribution Width 17.9 % (12-17)
[2023-11-15] MEDS: Metoprolol Tartrate 5 mg VIAL 5 ml VIAL (1 mg/ml) IV PRN (21:51)
[2023-11-15] MEDS: NF: BUDESONIDE/GLYCOPYR/FORMOTEROL MDI (NF) INH SCH (22:19)
[2023-11-15] MEDS: Lactated Ringers 1000 ml BAG 500 ML IV ONE (22:27)
[2023-11-15] MEDS: oxyCODONE 5 mg/5 ml ORAL.SOLN UDC PEG TUBE PRN (22:38)
[2023-11-16] MEDS: oxyCODONE 5 mg/5 ml ORAL.SOLN UDC PEG TUBE PRN (05:02)
[2023-11-16 05:56] LABS: ABS Lymphocytes 1.7 10^3/uL (1.0-4.8); ABS Monocytes 1.2 10^3/uL (0.0-0.9); ABS Neutrophils 7.4 10^3/uL (1.5-7.6); ABS Nucleated RBC 0.01 10^3/ul; Eosinophil % 0.3 %; Hematocrit 31.4 % (35-45); Hemoglobin 10.3 g/dL (11.5-14.3); Lymphocyte % 16.3 %; Mean Corpuscular Hemoglobin 26.8 pg (27-33); Mean Corpuscular Hgb Conc 32.7 g/dL (31-36); Mean Corpuscular Volume 81.8 fL (80-97); Mean Platelet Volume 8.1 fL (7.5-11.2); Nucleated Red Blood Cells % 0.1 %/100WBC (0.0-0.8); Platelet Count 385 10^3/uL (150-450); Red Blood Count 3.84 10^6/uL (3.63-4.92); Red Cell Distribution Width 17.8 % (12-17); White Blood Count 10.4 10^3/uL (3.8-11.8)
[2023-11-16 06:15] LABS: Calcium 8.5 mg/dL (8.6-10.3); Creatinine, Serum 0.48 mg/dL (0.51-0.95); Magnesium 1.6 mg/dL (1.9-2.7); Phosphorus 3.8 mg/dL (2.5-5.0); Potassium 3.7 mmol/L (3.5-5.0); eGFR CKD-EPI 98.7 (>60)
[2023-11-16 07:49] LABS: TSH Ultra Thyroid Stim Horm 2.43 mcIU/mL (0.34-5.60)
[2023-11-16] MEDS: Potassium Chloride LIQUID 20 MEQ/15 ML LIQUID PEG TUBE ONE (09:16)
[2023-11-16] MEDS: Magnesium Sulfate 2 gm BAG 2 GM/50 ML BAG IVPB ONE (09:17)
[2023-11-16] MEDS: Morphine 2 MG/ML SYRINGE IV PRN (15:26)
[2023-11-16] MEDS: Metoprolol Tartrate 5 mg VIAL 5 ml VIAL (1 mg/ml) IV PRN (19:13)
[2023-11-16] MEDS: Lactated Ringers 1000 ml BAG 500 ML IV ONE (21:16)
[2023-11-17 07:43] LABS: Calcium 8.5 mg/dL (8.6-10.3); Creatinine, Serum 0.56 mg/dL (0.51-0.95); Potassium 4.4 mmol/L (3.5-5.0); eGFR CKD-EPI 95.1 (>60)
[2023-11-17] MEDS: Ondansetron ODT 4 mg TAB 4 MG TAB PO PRN (13:36)
[2023-11-17] MEDS: Lactated Ringers 1000 ml BAG 1,000 ML IV ONE (14:52)
[2023-11-17 16:17] LABS: ABS Eosinophils 0.1 10^3/uL (0.0-0.5); ABS Lymphocytes 1.1 10^3/uL (1.0-4.8); ABS Neutrophils 7.8 10^3/uL (1.5-7.6); Eosinophil % 0.6 %; Hematocrit 32.3 % (35-45); Hemoglobin 10.8 g/dL (11.5-14.3); Lymphocyte % 11.1 %; Mean Corpuscular Hemoglobin 27.3 pg (27-33); Mean Corpuscular Hgb Conc 33.4 g/dL (31-36); Mean Corpuscular Volume 81.6 fL (80-97); Mean Platelet Volume 7.7 fL (7.5-11.2); Platelet Count 338 10^3/uL (150-450); Red Blood Count 3.96 10^6/uL (3.63-4.92); Red Cell Distribution Width 18.4 % (12-17); White Blood Count 9.9 10^3/uL (3.8-11.8)
[2023-11-17] MEDS: Metoprolol Tartrate 5 mg VIAL 5 ml VIAL (1 mg/ml) IV PRN (19:36)
[2023-11-17] MEDS: Mometasone/Formoter 200/5 MDI INH SCH (19:43)
[2023-11-18 09:18] VITALS: BP 106/72
== END 2023-11-18 13:15 | disposition home or self-care (01) | DRG 393 ==
LOC: SP 10:23 → SUATTDRO 16:24 → MED 16:24
PROVIDERS: ADMIT Internal Medicine; ATTEND Student in an Organized Health Care Education/Training Program